=== PATIENT | female | born 1990 | race Caucasian/White ===

== ENCOUNTER 2018-02-17 22:15 | Emergency (ER) | payer BC ==
[2018-02-17] MEDS ORDERED: Amoxicillin 500 MG Cap ONE (22:20)
--- NOTE | 2018-02-17 23:18 | ER ---
HPI: The patient is a 27-year-old female who comes to the ER with a one-day history of dysuria. The patient does not have fever, chills, nausea, vomiting, or flank pain. She has had UTIs in the past. She notes she has taken Macrobid and sulfa, but has allergies to both. She has previously taken amoxicillin which has worked well for her, and she has had no problems. She did take an azo dye tablet prior to coming in, but it was not in her urine yet. ALLERGIES: MACROBID AND SULFA. CURRENT MEDICATIONS: None. PAST MEDICAL HISTORY: Generally unremarkable. PHYSICAL EXAMINATION: GENERAL: She is alert, oriented, no apparent distress. VITAL SIGNS: Temperature is 98.4, pulse is 101, respirations 16, blood pressure is 134/76, O2 saturation is 99% on room air. HEENT: Unremarkable. NECK: Supple. No nodes. LUNGS: Clear. HEART: Regular sinus rhythm. ABDOMEN: Benign. No CVA tenderness. UA is positive. Microscopic and culture are pending. We did go ahead and culture it because she has the allergies to Macrobid and sulfa. We will put her on some amoxicillin 500 one p.o. t.i.d. x3 days. If the culture comes back, where it is not sensitive or she is not getting better over the next couple of days, she can call us back and would switch her over to Cipro. ASSESSMENT: Urinary tract infection. ROSSY/LULY /[id number]
== END 2018-02-17 22:40 | disposition home or self-care (01) ==
LOC: LB.ED 22:15
DX: N39.0 Urinary tract infection, site not specified (principal); Z88.2 Allergy status to sulfonamides; Z88.8 Allergy status to other drugs, medicaments and biological substances
CPT/HCPCS: 81001; 87086; 87088; 87186; 99283; A9270